=== PATIENT | female | born 1995 | race African-American/Black ===

== ENCOUNTER 2019-05-08 08:09 | Emergency (ER) | payer MEDICAID, OTHER ==
[~2019-05-08] VITALS: Ht 172.7 cm; Wt 68.6 kg
[2019-05-08 08:14] VITALS: BP 110/46
--- NOTE | 2019-05-08 08:45 | NUR ---
PT TO ROOM FROM [facility], AMBULATORY WITH LIMPING GAIT
[2019-05-08] MEDS ORDERED: ACETAMINOPHEN 500 MG TABLET ONE (09:01)
--- NOTE | 2019-05-08 09:24 | NUR ---
Patient/Caregiver given discharge instructions and they have confirmed that they understand the instructions. Patient ambulatory with limping but steady gait.
[2019-05-08] MEDS ORDERED: ACETAMINOPHEN 500 MG TABLET PO ONE (09:30)
== END 2019-05-08 09:25 | disposition home or self-care (01) ==
LOC: ED 09:15
DX: S90.31XA Contusion of right foot, initial encounter (principal); X58.XXXA Exposure to other specified factors, initial encounter; Y93.89 Activity, other specified; Y92.410 Unspecified street and highway as the place of occurrence of the external cause; Y99.8 Other external cause status
CPT/HCPCS: 99283

== ENCOUNTER 2019-06-20 16:57 | Emergency (ER) | payer OTHER ==
[~2019-06-20] VITALS: Ht 172.7 cm; Wt 69.9 kg
[2019-06-20 17:05] VITALS: BP 137/76
--- NOTE | 2019-06-20 17:16 | NUR ---
SKIN THERAPIST: PT TO ROOM FROM [facility]
[2019-06-20] MEDS ORDERED: ACETAMINOPHEN 325 MG TABLET ONE (17:43)
[2019-06-20 17:50] LABS: HCG UR SG 1.021 (1.003-1.030); MICROSCOPIC AUTO
[2019-06-20 17:52] LABS: CULTURE INDICATED? YES
[2019-06-20] MEDS ORDERED: ACETAMINOPHEN 325 MG TABLET PO ONE (18:00)
--- NOTE | 2019-06-20 18:27 | NUR ---
Patient given discharge instructions and they have confirmed that they understand the instructions. Patient ambulatory with steady gait.
== END 2019-06-20 18:29 | disposition home or self-care (01) ==
LOC: ED 18:10
DX: N30.00 Acute cystitis without hematuria (principal)
CPT/HCPCS: 81001; 81025; 87086; 99283

== ENCOUNTER → 2020-06-19 | Outpatient (CLI) | payer BC ==
[~2020-06-19] MED LIST: OMNIPAQUE 350 MG/ML, 100ML BOTTLE ONE; albuterol; iron
== END | disposition home or self-care (01) ==
LOC: CFH 11:23
PROVIDERS: ATTEND Student in an Organized Health Care Education/Training Program
DX: N83.201 Unspecified ovarian cyst, right side (principal)
CPT/HCPCS: 74177; Q9967

== ENCOUNTER 2020-07-21 17:42 | Emergency (ER) | payer BC ==
[~2020-07-21] VITALS: Ht 172.7 cm; Wt 65.2 kg
[~2020-07-21 17:42] MED LIST changes: -OMNIPAQUE 350 MG/ML, 100ML BOTTLE ONE
[2020-07-21] MEDS ORDERED: KETOROLAC 30 MG/1 ML IM ONE (18:30)
[2020-07-21] MEDS ORDERED: METHOCARBAMOL 750 MG TABLET PO ONE (18:30)
[2020-07-21 19:30] VITALS: BP 125/64
[2020-07-21] MEDS ORDERED: METHOCARBAMOL 750 MG TABLET ONE (19:37)
[2020-07-21] MEDS ORDERED: KETOROLAC 30 MG/1 ML ONE (19:37)
--- NOTE | 2020-07-21 20:00 | NUR ---
PT TO CT
--- NOTE | 2020-07-21 21:16 | NUR ---
TASK RN: DC EDUCATION PROVIDED. PT DEMONSTRATES UNDERSTANDING. PT AMBULATED STEADILY TO DC WITH RN AND FAMILY MEMBER. FAMILY TO TRANSPORT PT HOME
== END 2020-07-21 21:17 | disposition home or self-care (01) ==
LOC: ED 18:01
DX: S06.0X0A Concussion without loss of consciousness, initial encounter (principal); S16.1XXA Strain of muscle, fascia and tendon at neck level, initial encounter; V49.49XA Driver injured in collision with other motor vehicles in traffic accident, initial encounter; Y93.89 Activity, other specified; Y92.410 Unspecified street and highway as the place of occurrence of the external cause; Y99.8 Other external cause status
CPT/HCPCS: 72125; 96372; 99284; J1885

== ENCOUNTER 2020-08-29 03:51 | Emergency (ER) | payer BC ==
[~2020-08-29] VITALS: Ht 172.7 cm; Wt 65.0 kg
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
--- NOTE | 2020-08-29 05:19 | NUR ---
xray in room. Pt calm and cooperative. VSS. No distress. will monitor. Sitter outside room.
[2020-08-29 05:45] LABS: BASOPHILS % (AUTO) 1 % (0-1); EOSINOPHILS % (AUTO) 0 % (1-7); LYMPHOCYTES % (AUTO) 22 % (22-44); MEAN CORPUSCULAR HEMOGLOBIN 30.9 pg (27.0-34.8); MEAN CORPUSCULAR HGB CONC 34.3 g/dL (32.4-35.8); MEAN PLATELET VOLUME 8.8 fL (7.4-10.4); MONOCYTES % (AUTO) 8 % (2-9); NEUTROPHILS % (AUTO) 69 % (42-75); PLATELET COUNT 212 x10^3/uL (130-400); RED CELL DISTRIBUTION WIDTH 12.6 % (9.6-15.2)
[2020-08-29 05:48] LABS: ALBUMIN 4.2 g/dL (3.4-5.0); ANION GAP 8 mmol/L (5-15); CALCIUM 9.8 mg/dL (8.5-10.1); CHLORIDE 111 mmol/L (98-107); CREATININE 0.77 mg/dL (0.55-1.02)
[2020-08-29 05:50] LABS: MD NO; SALICYLATE LEVEL < 1.7 mg/dL (2.8-20.0)
--- NOTE | 2020-08-29 07:09 | NUR ---
report from Bryce BLANCO
[2020-08-29] MEDS ORDERED: ACETAMINOPHEN 500 MG TABLET ONE (07:44)
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
--- NOTE | 2020-08-29 07:56 | NUR ---
pt also states she cannot give us a urine sample at this time.
[2020-08-29 07:57] VITALS: BP 105/58
[2020-08-29] MEDS ORDERED: ACETAMINOPHEN 500 MG TABLET PO ONE (08:00)
--- NOTE | 2020-08-29 08:39 | NUR ---
tried again for a urine sample. Patient still denies being able to pee. Breakfast tray refused. I advised her that if she could not provide a sample we would have to do a straight cath. Will check again in 15min.
--- NOTE | 2020-08-29 09:12 | NUR ---
urine sample collected and sent to lab
[2020-08-29 09:33] LABS: AMPHETAMINE SCREEN, URINE Negative (Negative); BARBITURATE SCREEN, URINE Negative (Negative); BENZODIAZEPINE SCREEN, URINE Negative (Negative); CANNABINOID SCREEN, URINE Positive (Negative); COCAINE SCREEN, URINE Negative (Negative); METHADONE SCREEN, URINE Negative (Negative); OPIATE SCREEN, URINE Negative (Negative)
--- NOTE | 2020-08-29 10:07 | NUR ---
pt resting comfortably on gurney. She states the Tylenol has helped her headache. Awaiting evaluation by the STREET SWEEPER. Sprite provided in cup. no further needs at this time.
--- NOTE | 2020-08-29 11:07 | NUR ---
pt is sleeping, respirations even and unlabored in safe room with sitter outside the door within reach. Awaiting evaluation from the [facility]K.
[2020-08-29 12:02] LABS: BASOPHILS % (AUTO) 1 % (0-1); EOSINOPHILS % (AUTO) 0 % (1-7); LYMPHOCYTES % (AUTO) 28 % (22-44); MEAN CORPUSCULAR HEMOGLOBIN 31.3 pg (27.0-34.8); MEAN CORPUSCULAR HGB CONC 34.6 g/dL (32.4-35.8); MEAN PLATELET VOLUME 8.5 fL (7.4-10.4); MONOCYTES % (AUTO) 7 % (2-9); NEUTROPHILS % (AUTO) 64 % (42-75); PLATELET COUNT 193 x10^3/uL (130-400); RED BLOOD COUNT 3.77 x10^6/uL (3.82-5.3); RED CELL DISTRIBUTION WIDTH 12.6 % (9.6-15.2)
[2020-08-29 12:05] LABS: MD NO
[2020-08-29 12:14] LABS: ANION GAP 8 mmol/L (5-15); CALCIUM 9.2 mg/dL (8.5-10.1); CHLORIDE 111 mmol/L (98-107)
[2020-08-29 12:18] LABS: ALANINE AMINOTRANSFERASE 32 U/L (12-78); ALKALINE PHOSPHATASE 41 U/L (45-117); BILIRUBIN,TOTAL 1.2 mg/dL (0.2-1.0); CREATININE 0.69 mg/dL (0.55-1.02)
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
== END 2020-08-29 15:21 | disposition home or self-care (01) ==
LOC: ED 04:38
DX: S50.812A Abrasion of left forearm, initial encounter (principal); S60.512A Abrasion of left hand, initial encounter; Y04.8XXA Assault by other bodily force, initial encounter; Y93.89 Activity, other specified; Y92.89 Other specified places as the place of occurrence of the external cause; Y99.8 Other external cause status
CPT/HCPCS: 36415; 80048; 80053; 80299; 80307; 80320; 80329; 82040; 84703; 85025; 93005; 99285; G0480

== ENCOUNTER 2020-12-08 16:40 | Emergency (ER) | payer BC ==
[~2020-12-08] VITALS: Ht 172.7 cm; Wt 65.2 kg
[2020-12-08] MEDS ORDERED: L.E.T SOLUTION TP ONE ×2 (17:15→17:30)
[2020-12-08] MEDS ORDERED: LIDOCAINE-MPF 1%, 5ML ONE (17:43)
--- NOTE | 2020-12-08 17:46 | NUR ---
ERP to bedside to suture.
[2020-12-08] MEDS ORDERED: NEOSPORIN OINT. PKT 1 PACKET ONE (18:12)
--- NOTE | 2020-12-08 18:14 | NUR ---
Wound being dressed. Pt educated about clean catch urine.
--- NOTE | 2020-12-08 18:19 | NUR ---
Pt ambulatory to bathroom for UA, steady gait.
[2020-12-08 18:33] LABS: HCG UR SG 1.036 (1.003-1.030)
[2020-12-08 18:37] LABS: MICROSCOPIC INDICATED
[2020-12-08 18:51] VITALS: BP 117/62
[2020-12-08] MEDS ORDERED: ACETAMINOPHEN 500 MG TABLET PO ONE (19:00)
[2020-12-08] MEDS ORDERED: ACETAMINOPHEN 500 MG TABLET ONE (19:02)
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
== END 2020-12-08 19:16 | disposition home or self-care (01) ==
LOC: ED 19:00
DX: S61.412A Laceration without foreign body of left hand, initial encounter (principal); W26.0XXA Contact with knife, initial encounter; Y93.89 Activity, other specified; Y92.009 Unspecified place in unspecified non-institutional (private) residence as the place of occurrence of the external cause; Y99.8 Other external cause status
CPT/HCPCS: 12041; 81001; 81025; 99284

== ENCOUNTER 2020-12-23 17:39 | Emergency (ER) | payer BC ==
[~2020-12-23] VITALS: Ht 172.7 cm; Wt 67.3 kg
[2020-12-23] MEDS ORDERED: PROCHLORPERAZINE 5 MG/ML, 2ML IM ONE (18:00)
[2020-12-23] MEDS ORDERED: DIPHENHYDRAMINE 25 MG CAPSULE PO ONE (18:00)
--- NOTE | 2020-12-23 18:17 | NUR ---
corporate compliance director: Pt ambulatory to room from lobby at this time.
[2020-12-23] MEDS ORDERED: ACETAMINOPHEN 325 MG TABLET PO ONE (18:30)
--- NOTE | 2020-12-23 18:36 | NUR ---
PT C/O HEADACHE X 5 DAYS. PT ALSO C/O BLURRY VISION, LEFT SIDE NECK PAIN, AND NAUSEA. PT HAS HAD HEADACHES BEFORE, BUT NOTHING SIMILIAR. PT DENIES HEAD INJURY.
[2020-12-23 18:37] VITALS: BP 116/70
[2020-12-23] MEDS ORDERED: METOCLOPRAMIDE 5 MG/ML, 2ML IM ONE (19:00)
[2020-12-23] MEDS ORDERED: ACETAMINOPHEN 325 MG TABLET ONE (19:11)
[2020-12-23] MEDS ORDERED: DIPHENHYDRAMINE 25 MG CAPSULE ONE ×2 (19:12→19:13)
[2020-12-23] MEDS ORDERED: METOCLOPRAMIDE 5 MG/ML, 2ML ONE (19:12)
[2020-12-23] MEDS ORDERED: PROCHLORPERAZINE 10MG TABLET ONE (19:12)
--- NOTE | 2020-12-23 19:12 | NUR ---
RECEIEVED REPORT FROM CINDY BLANCO. TRANSFER OF CARE.
[2020-12-23] MEDS ORDERED: PROCHLORPERAZINE 5 MG/ML, 2ML ONE (19:13)
--- NOTE | 2020-12-23 19:23 | NUR ---
Assist RN: medicated patient per mar.
== END 2020-12-23 20:13 | disposition home or self-care (01) ==
LOC: ED 18:09
DX: G44.221 Chronic tension-type headache, intractable (principal); M54.2 Cervicalgia; R11.0 Nausea
CPT/HCPCS: 96372; 99284; J0780; J2765; Q0163

== ENCOUNTER 2021-02-16 11:26 | Day surgery (SDC) | payer BC ==
[~2021-02-16] VITALS: Ht 172.7 cm; Wt 64.6 kg
[~2021-02-16 11:26] MED LIST changes: +EPHEDRINE 50 MG/ML, 1ML IVPush PRN; +FENTANYL PF 100 MCG/2ML IV PRN; +HYDROmorphone 1 MG/ML, 1ML INJ IVPush PRN; +LABETALOL 5MG/ML, 20ML IV PRN; +MEPERIDINE/PF 25MG/0.5ML IVPush PRN; +ONDANSETRON 2MG/ML, 2ML IVPush PRN; +OXYcodone 5 MG/5 ML ORAL.SOL UDC PO PRN; +PROMETHAZINE 25 MG/ML, 1ML IVPush PRN; +hydrALAzine 20 MG/ML, 1ML IV PRN
[2021-02-16 12:17] VITALS: BP 127/86
[2021-02-16] MEDS ORDERED: CHLORHEXIDINE 15 ML UDC PO ONE (12:30)
[2021-02-16] MEDS ORDERED: LACTATED RINGERS 1,000 ML IV SCH (12:30)
[2021-02-16] MEDS ORDERED: LIDOCAINE-MPF 1%, 2ML INFIL ONE (12:30)
[2021-02-16 14:09] LABS: ALANINE AMINOTRANSFERASE 37 U/L (12-78); ANION GAP 6 mmol/L (5-15); CALCIUM 8.7 mg/dL (8.5-10.1); CHLORIDE 109 mmol/L (98-107); CREATININE 0.57 mg/dL (0.55-1.02)
[2021-02-16 14:11] LABS: ALKALINE PHOSPHATASE 40 U/L (45-117); BILIRUBIN,TOTAL 1.2 mg/dL (0.2-1.0); TOTAL PROTEIN 7.2 g/dL (6.4-8.2)
[2021-02-16] MEDS ORDERED: FENTANYL PF 100 MCG/2ML ONE (14:17)
[2021-02-16] MEDS ORDERED: MIDAZOLAM 1 MG/ML, 2ML ONE (14:17)
[2021-02-16] MEDS ORDERED: ONDANSETRON 2MG/ML, 2ML ONE (14:23)
[2021-02-16] MEDS ORDERED: PROPOFOL 10 MG/ML, 20ML ONE (14:23)
[2021-02-16] MEDS ORDERED: ROCURONIUM 10MG/ML,5ML ONE (14:23)
[2021-02-16] MEDS ORDERED: SUCCINYLCHOLINE 20 MG/ML, 10ML ONE (14:23)
[2021-02-16] MEDS ORDERED: DEXAMETHASONE 4 MG/ML, 1ML ONE (14:23)
[2021-02-16] MEDS ORDERED: LIDOCAINE-MPF 2% ,5ML ONE (14:47)
[2021-02-16] MEDS ORDERED: KETOROLAC 30 MG/1 ML ONE ×2 (14:47→15:44)
[2021-02-16] MEDS ORDERED: SUGAMMADEX 200 MG/2 ML IVPush ONE (14:47)
[2021-02-16] MEDS ORDERED: EPHEDRINE 50 MG/ML, 1ML ONE (14:56)
[2021-02-16] MEDS ORDERED: BUPIVACAINE/PF-EPI 0.25% 1:200K INFIL ONE (15:09)
[2021-02-16] MEDS ORDERED: ACETAMINOPHEN 650 MG/20.3 ML UDC ONE (15:44)
[2021-02-16] MEDS: ACETAMINOPHEN 325 MG TABLET PO PRN ×2 (15:48→17:48)
[2021-02-16] MEDS ORDERED: KETOROLAC 30 MG/1 ML IVPush PRN (16:00)
[2021-02-16] MEDS ORDERED: HYDROmorphone 2 MG/ML, 1ML ONE (17:06)
== END 2021-02-16 18:55 | disposition home or self-care (01) ==
LOC: OUT 11:26
PROVIDERS: ATTEND Obstetrics & Gynecology Female Pelvic Medicine and Reconstructive Surgery
DX: N94.6 Dysmenorrhea, unspecified (principal); N93.9 Abnormal uterine and vaginal bleeding, unspecified; N80.3 Endometriosis of pelvic peritoneum; Z79.3 Long term (current) use of hormonal contraceptives
CPT/HCPCS: 36415; 58555; 58662; 80053; 81025; J0330; J1100; J1170; J1885; J2250; J2405; J2704; J3010; J7120